=== PATIENT | male | born 1965 | race Caucasian/White ===

== ENCOUNTER 2017-05-24 07:55 | Emergency (ER) | payer OTHER ==
[~2017-05-24] VITALS: Ht 175.3 cm; Wt 199.2 kg
[2017-05-24 09:01] LABS: HEMATOCRIT 45.7 % (38.0-50.0); HEMOGLOBIN 15.5 G/DL (12.5-16.6); MCH 29.8 PG (29.0-34.0); MCHC 33.9 G/DL (30.0-36.0); MCV 87.9 FL (86-99); PLATELET COUNT 116 K/uL (156-360); RBC DIS.WIDTH-CV 13.1 % (11.8-14.6); RBC DIS.WIDTH-SD 41.9 % (39-53)
[2017-05-24 10:40] LABS: ALBUMIN 4.2 g/dL (3.2-4.8); CHLORIDE 107 mEq/L (99-109); POTASSIUM 4.2 mEq/L (3.7-5.4); SODIUM 139 mEq/L (136-147)
[2017-05-24 10:42] LABS: GLUCOSE 116 mg/dL (70-99)
[2017-05-24 10:43] LABS: TOTAL PROTEIN 6.6 g/dL (6.4-8.3)
[2017-05-24 10:44] LABS: TOTAL BILIRUBIN 0.6 mg/dL (0.0-1.0)
[2017-05-24 10:46] LABS: ALKALINE PHOSPHATASE 92 IU/L (3-129); CREATININE 0.9 mg/dL (0.6-1.3); GFR ESTIMATE (CALCULATED) > 59 mL/min/ (58.99-99999)
[2017-05-24 10:47] LABS: UREA NITROGEN (BUN) 19 mg/dL (9-23)
[2017-05-24 10:48] LABS: AST (GOT) 19 IU/L (2-34)
[2017-05-24 10:49] LABS: ALT (GPT) 24 IU/L (3-49)
[2017-05-24] MEDS ORDERED: TRAMADOL HCL50 MG PO (13:54)
[2017-05-24] MEDS ORDERED: KEFLEX500 MG PO (13:54)
[2017-05-24 14:09] VITALS: BP 203/105
== END 2017-05-24 14:10 | disposition home or self-care (01) ==
LOC: EME 07:55
DX: L97.928 Non-pressure chronic ulcer of unspecified part of left lower leg with other specified severity (principal); I89.0 Lymphedema, not elsewhere classified; I87.2 Venous insufficiency (chronic) (peripheral); L03.116 Cellulitis of left lower limb; L03.115 Cellulitis of right lower limb; I10 Essential (primary) hypertension; E11.9 Type 2 diabetes mellitus without complications; Z79.84 Long term (current) use of oral hypoglycemic drugs; E78.00 Pure hypercholesterolemia, unspecified; Z87.891 Personal history of nicotine dependence; Z83.3 Family history of diabetes mellitus; Z82.49 Family history of ischemic heart disease and other diseases of the circulatory system; Z80.9 Family history of malignant neoplasm, unspecified
CPT/HCPCS: 80053; 85027; A6212; J1885